=== PATIENT | male | born 1985 | race Caucasian/White ===

== ENCOUNTER 2021-03-26 02:56 | Emergency (ER) | payer OTHER ==
[~2021-03-26] VITALS: Ht 175.3 cm; Wt 102.1 kg
[2021-03-26 03:03] VITALS: BP 144/98
--- NOTE | 2021-03-26 03:06 | NUR ---
to lobby a/w bed ambulatory, no bleeding at this time
--- NOTE | 2021-03-26 03:58 | NUR ---
Dr. Bruner examining patient.
--- NOTE | 2021-03-26 04:02 | NUR ---
Patient has a laceration to head. Dr. trinidad applied 4 marjan using sterile technique. Site cleansed with ns. No bleeding noted. Pt tolerated well.
[2021-03-26 04:07] VITALS: BP 121/78
--- NOTE | 2021-03-26 04:07 | NUR ---
Patient discharged with v/s stable. Written and verbal after care instructions given and explained. Patient verbalized understanding. Ambulatory with steady gait. All questions addressed prior to discharge. Advised to follow up with PMD.
== END 2021-03-26 04:07 | disposition home or self-care (01) ==
LOC: MED 02:56
DX: S01.81XA Laceration without foreign body of other part of head, initial encounter (principal); Y04.8XXA Assault by other bodily force, initial encounter; Y93.89 Activity, other specified; Y92.89 Other specified places as the place of occurrence of the external cause; Y99.8 Other external cause status
CPT/HCPCS: 99282

== ENCOUNTER 2021-04-12 02:43 | Emergency (ER) | payer OTHER ==
[~2021-04-12] VITALS: Ht 175.3 cm; Wt 104.3 kg
[2021-04-12 02:50] VITALS: BP 129/90
[2021-04-12] MEDS ORDERED: LIDOCAINE/PRILOCAINE 2.5% 5 GM TUBE TP ONE ×2 (03:00→03:01)
--- NOTE | 2021-04-12 03:00 | NUR ---
PT AMBULATED TO BED 04.
--- NOTE | 2021-04-12 03:10 | NUR ---
ERMD AT BEDSIDE PERFORMING SUTURE REMOVAL.
--- NOTE | 2021-04-12 03:28 | NUR ---
Patient discharged with v/s stable. Written and verbal after care instructions given and explained. Patient verbalized understanding. Ambulatory with steady gait. All questions addressed prior to discharge. Advised to follow up with PMD. NO NURSING INTERVENTIONS REQUIRED.
== END 2021-04-12 03:28 | disposition home or self-care (01) ==
LOC: MED 02:43
DX: S01.91XD Laceration without foreign body of unspecified part of head, subsequent encounter (principal); X58.XXXD Exposure to other specified factors, subsequent encounter
CPT/HCPCS: 99281

== ENCOUNTER 2022-01-30 08:09 | Emergency (ER) | payer OTHER ==
[~2022-01-30] VITALS: Ht 177.8 cm; Wt 90.7 kg
[2022-01-30 08:18] VITALS: BP 148/70
--- NOTE | 2022-01-30 08:31 | NUR ---
PT C/O LEFT UPPER LEG PAIN S/P FALL. DENIES LOC HEAD NECK OR BACK PAIN. PT UNABLE TO BEAR WEIGHT ON LEFT LEG. C/O 10 PAIN
[2022-01-30] MEDS ORDERED: oxyCODONE/APAP 5/325 MG 1 TAB TAB PO ONE (08:35)
[2022-01-30] MEDS ORDERED: MORPHINE SULFATE 4 MG/ML SYR IVP ONE ×2 (09:05→10:30)
[2022-01-30 09:52] LABS: BASOPHILS # (AUTO) 0.1 K/uL (0.00-0.22); BASOPHILS % (AUTO) 0.4 % (0.0-2.0); EOSINOPHILS # (AUTO) 0.2 K/uL (0-0.4); EOSINOPHILS % (AUTO) 0.9 % (0.0-4.0); HEMATOCRIT 42.9 % (36-52); HEMOGLOBIN 14.9 g/dL (12.0-18.0); LYMPHOCYTES # (AUTO) 1.9 K/uL (2.0-11.5); LYMPHOCYTES % (AUTO) 10.8 % (20.5-51.1); MEAN CORPUSCULAR HEMOGLOBIN 32 pg (27-31); MEAN CORPUSCULAR HGB CONC 35 g/dL (33-37); MEAN CORPUSCULAR VOLUME 91.7 fL (80-94); MONOCYTES # (AUTO) 0.7 K/uL (0.8-1.0); MONOCYTES % (AUTO) 4.3 % (1.7-9.3); NEUTROPHILS # (AUTO) 14.6 K/uL (1.8-7.7); NEUTROPHILS % (AUTO) 83.6 % (42.2-75.2); PLATELET COUNT (AUTO) 326 K/uL (140-450); RED BLOOD CELL COUNT(AUTO) 4.68 MIL/uL (4.20-6.10); RED CELL DISTRIBUTION WIDTH 12.7 % (11.6-13.7); WHITE BLOOD COUNT (AUTO) 17.4 K/uL (4.8-10.8)
[2022-01-30 10:10] LABS: PROTHROMBIN TIME 9.8 secs (10.8-13.4)
--- NOTE | 2022-01-30 10:22 | NUR ---
report given to lisa BRYANT at [facility] for continuation of care
[2022-01-30 11:18] LABS: ALBUMIN 4.2 g/dL (3.4-5.0); ANION GAP 14.2 (8-16); CARBON DIOXIDE 24.2 mmol/L (21-32); CREATININE 1.2 mg/dL (0.6-1.3); POTASSIUM 3.4 mmol/L (3.5-5.1); TOTAL BILIRUBIN 0.3 mg/dL (0.0-1.0)
[2022-01-30 11:32] VITALS: BP 155/70
--- NOTE | 2022-01-30 11:32 | NUR ---
report given to [facility]t at bedside. pt stable for tx to [facility] for higher level of care
--- NOTE | 2022-01-30 11:36 | NUR ---
Patient to be transferred to [facility]. Is being transferred due to higher level of care. Receiving facility has accepting physician and available space. ER physician has signed transfer form. Patient or responsible alliance party has agreed to transfer and signed form. Patient belongings inventoried and will be sent with patient. Copy of nursing notes, lab reports, EKG, Physicians Orders and X-rays to be sent with patient. Report called to lisa martel at receiving facility. [facility] ambulance service has been called for transfer. ETA is 15 min.
== END 2022-01-30 11:36 | disposition home or self-care (01) ==
LOC: MED 08:09
DX: S32.492A Other specified fracture of left acetabulum, initial encounter for closed fracture (principal); S73.002A Unspecified subluxation of left hip, initial encounter; Z20.822 Contact with and (suspected) exposure to COVID-19; W18.30XA Fall on same level, unspecified, initial encounter; Y93.89 Activity, other specified; Y92.89 Other specified places as the place of occurrence of the external cause; Y99.8 Other external cause status
CPT/HCPCS: 36415; 72170; 73552; 80053; 85025; 85610; 85730; 87426; 96374; 96375; 99284; J2270

== ENCOUNTER 2022-08-03 12:56 | Emergency (ER) | payer OTHER ==
[~2022-08-03] VITALS: Ht 177.8 cm; Wt 83.9 kg
[2022-08-03 13:26] VITALS: BP 159/99
--- NOTE | 2022-08-03 14:20 | NUR ---
PT RECEIVED, CARE ASSUMED. PT PRESENTS SELF TO ER WITH C/P REDNESS, PAIN TO THE RIGHT EYE. PT IN ROOM AWAITING TO BE SEEN BY
[2022-08-03] MEDS ORDERED: TETRACAINE HCL/PF 0.5% OPTH 4 ML BTL OP ONE (15:30)
[2022-08-03] MEDS ORDERED: FLUORESCEIN OPTH STRIP 1 MG OP ONE (15:30)
[2022-08-03] MEDS ORDERED: KETOROLAC 30 MG/ML VIAL IM ONE (15:30)
[2022-08-03] MEDS ORDERED: ERYT2GEL22 TP (16:12)
[2022-08-03] MEDS ORDERED: IBUP-2213 PO (16:12)
== END 2022-08-03 16:17 | disposition home or self-care (01) ==
LOC: MED 12:56
DX: H10.9 Unspecified conjunctivitis (principal); B96.89 Other specified bacterial agents as the cause of diseases classified elsewhere
CPT/HCPCS: 96372; 99283; J1885